=== PATIENT | female | born 1990 | race Caucasian/White ===

== ENCOUNTER → 2017-08-20 | Day surgery (SDC) | payer OTHER ==
[~2017-08-20] MED LIST: LIDOCAINE HCL 2% LOCAL INJ 5 ML SDV VIAL INJ ONE; MIDAZOLAM HCL 2 MG/2 ML VIAL ONE; PROPOFOL IV EMULSION 10 MG/ML 50 ML VIAL ONE
== END | disposition home or self-care (01) ==
LOC: OR 06:45
PROVIDERS: ATTEND Internal Medicine Gastroenterology
DX: K92.1 Melena (principal); K60.2 Anal fissure, unspecified; K59.09 Other constipation; K62.89 Other specified diseases of anus and rectum; K64.8 Other hemorrhoids
CPT/HCPCS: 45380; 81025; J2001; J2250